=== PATIENT | female | born 1955 | race Caucasian/White ===

== ENCOUNTER 2020-08-01 19:00 | Inpatient (IN) ==
[~2020-08-01 19:00] MED LIST: HEPARIN/NACL 0.9% 2 UNITS/ML 1,000 ML IV ONE; HYDROmorphone 2 MG/1 ML VIAL ONE; LIDOCAINE 1% 20 ML VIAL ONE; MIDAZOLAM 2 MG/2 ML VIAL ONE; NITROGLYCERIN DRIP 50 MG/250 ML BOTTLE IV ONE; VERAPAMIL 5 MG/2 ML VIAL ONE
[2020-08-01] MEDS ORDERED: EPTIFIBATIDE 20,000 MCG/10 ML VIAL ONE (19:14)
[2020-08-01] MEDS ORDERED: EPTIFIBATIDE 75 MG/100 ML BOTTLE IV ONE (19:14)
[2020-08-01] MEDS ORDERED: TICAGRELOR 90 MG TABLET ONE (19:28)
[2020-08-01] MEDS ORDERED: DEXTROSE 50% 25 GM/50 ML VIAL IV PRN ×2 (19:33→21:00)
[2020-08-01] MEDS ORDERED: GLUCAGON 1 MG VIAL IM PRN ×2 (19:33→21:00)
[2020-08-01] MEDS: EPTIFIBATIDE 75 MG/100 ML BOTTLE IV SCH (19:52)
[2020-08-01] MEDS ORDERED: SODIUM CHLORIDE 0.9% 1,000 ML IV SCH (20:00)
[2020-08-01] MEDS: carvediloL 6.25 MG TABLET PO SCH (20:28)
[2020-08-01] MEDS: ROSUVASTATIN 20 MG TABLET PO SCH (20:28)
[2020-08-01] MEDS ORDERED: TICAGRELOR 90 MG TABLET PO SCH (21:00)
[2020-08-01] MEDS ORDERED: ACETAMINOPHEN 325 MG TABLET PO PRN (21:00)
[2020-08-01] MEDS ORDERED: ONDANSETRON 4 MG/2 ML VIAL IV PRN (21:00)
[2020-08-01 21:05] LABS: Basophils % 0.4 % (0.0-0.8); Eosinophils # 0.3 10*3/uL (0.0-0.87); Eosinophils % 2.8 % (0.00-10.9); Hematocrit 39.2 VOL% (35.7-47.0); Hemoglobin 12.5 GM/DL (12.0-16.0); Immature Granulocytes % 0.5 %; Immature Granulocytes Absolute 0.06 #; Lymphocytes # 2.4 10*3/uL (1.4-4.0); Lymphocytes % 21.2 % (21.3-54.2); Mean Corpuscular HGB Conc 31.9 GM/DL (32-36); Mean Corpuscular Volume 94.2 FL (87-102); Mean Platelet Volume 9.5 FL (9.6-12.0); Monocytes % 5.2 % (1.7-12.7); Neutrophils % 69.9 % (38.7-73.9); Platelet Count 278 T/CUMM (130-400); Red Blood Count 4.16 MC/CUMM (3.8-5.5); Red Cell Distribution Width 13.7 % (9.3-17.3); White Blood Count 11.3 T/CUMM (4-12)
[2020-08-01 21:19] LABS: Calcium 9.7 MG/DL (8.5-10.1); Osmolality,Calculated 286.4 MOS/KG (273-304)
[2020-08-01 21:23] LABS: CKMB % 7.5 %
[2020-08-01 21:25] LABS: Troponin I 17.3 NG/ML (0.00-0.045)
[2020-08-01] MEDS: INSULIN LISPRO 100 UNIT/ML SUBCUT SCH (21:43)
[2020-08-01] MEDS: ENOXAPARIN 40 MG/0.4 ML SYRINGE SUBCUT SCH (21:43)
[2020-08-01] MEDS: GABAPENTIN 300 MG CAPSULE PO SCH (22:55)
[2020-08-02] MEDS: EPTIFIBATIDE 75 MG/100 ML BOTTLE IV SCH (04:35)
[2020-08-02 06:33] LABS: Basophils # 0.1 10*3/uL (0.0-0.2); Basophils % 0.7 % (0.0-0.8); Eosinophils # 0.3 10*3/uL (0.0-0.87); Eosinophils % 3.7 % (0.00-10.9); Hemoglobin 11.4 GM/DL (12.0-16.0); Immature Granulocytes % 0.3 %; Immature Granulocytes Absolute 0.03 #; Lymphocytes % 22.2 % (21.3-54.2); Mean Corpuscular HGB Conc 32.6 GM/DL (32-36); Mean Corpuscular Volume 93.6 FL (87-102); Mean Platelet Volume 9.6 FL (9.6-12.0); Monocytes % 7.4 % (1.7-12.7); Neutrophils % 65.7 % (38.7-73.9); Platelet Count 244 T/CUMM (130-400); Red Blood Count 3.74 MC/CUMM (3.8-5.5); Red Cell Distribution Width 13.8 % (9.3-17.3); White Blood Count 9.2 T/CUMM (4-12)
[2020-08-02 06:54] LABS: Bacteria,Urine Occasional /HPF (Few); Mucus,Urine Occasional /LPF (Occasional); RBC,Urine 2 /HPF (0-4); Squamous Epithelial Cell,Urine Occasional /HPF (0-10); WBC,Urine 23 /HPF (0-6)
[2020-08-02 07:01] LABS: Urine Color Yellow (Yellow)
[2020-08-02 07:02] LABS: Apearance,Urine Clear (Clear); Bilirubin,Urine Negative (Negative); Blood, Urine Negative (Negative); Glucose,Urine (UA) Negative (Negative); Ketones,Urine Negative (Negative); Nitrite,Urine Negative (Negative); Protein,Urine 30 MG/DL; Urine Specific Gravity 1.015 (1.001-1.035)
[2020-08-02 07:04] LABS: Osmolality,Calculated 290.3 MOS/KG (273-304); Risk Ratio 5.07
[2020-08-02 07:05] LABS: Thyroid Stimulating Hormone 6.43 uIU/ml (0.358-3.74)
[2020-08-02 07:25] LABS: Troponin I 50.7 NG/ML (0.00-0.045)
[2020-08-02] MEDS: PANTOPRAZOLE 40 MG TABLET PO SCH (08:57)
[2020-08-02] MEDS: carvediloL 6.25 MG TABLET PO SCH ×2 (08:57→20:45)
[2020-08-02] MEDS: INSULIN LISPRO 100 UNIT/ML SUBCUT SCH ×4 (08:57→20:43)
[2020-08-02] MEDS: LOSARTAN 25 MG TABLET PO SCH (08:57)
[2020-08-02] MEDS: TICAGRELOR 90 MG TABLET PO SCH ×2 (08:57→20:44)
[2020-08-02] MEDS: ENOXAPARIN 40 MG/0.4 ML SYRINGE SUBCUT SCH (08:58)
[2020-08-02] MEDS ORDERED: GABAPENTIN 300 MG CAPSULE PO SCH (09:00)
[2020-08-02] MEDS ORDERED: ASPIRIN CHEW 81 MG TABLET PO SCH (09:00)
[2020-08-02] MEDS: rOPINIRole 0.25 MG TABLET PO SCH (10:07)
[2020-08-02] MEDS ORDERED: DEXTROSE 50% 25 GM/50 ML VIAL IV PRN (10:47)
[2020-08-02 11:54] LABS: CKMB % 6.6 %
[2020-08-02 11:58] LABS: Troponin I 28.5 NG/ML (0.00-0.045)
[2020-08-02 14:47] LABS: ABG Base Excess -0.7 MMOL/L (-2.5-2.5); ABG HCO3 23.8 MMOL/L (20-26); ABG Oxygen Saturation 96.7 % (95-100); ABG PCO2 35.3 MM HG (35-48); ABG PH 7.424 (7.35-7.45); ABG PO2 83.1 MM HG (80-95); ABG TCO2 20.4 MMOL/L (23-27); Allen Test Positive; Pt O2 Delivery Device Room Air
[2020-08-02] MEDS ORDERED: MAGNESIUM HYDROXIDE SUSP 30 ML UDCUP PO PRN (16:03)
[2020-08-02] MEDS ORDERED: diphenhydrAMINE CAP 25 MG CAPSULE PO PRN (16:03)
[2020-08-02] MEDS: GABAPENTIN 300 MG CAPSULE PO SCH (20:44)
[2020-08-02] MEDS: ROSUVASTATIN 20 MG TABLET PO SCH (20:48)
[2020-08-03 05:33] LABS: Basophils # 0.1 10*3/uL (0.0-0.2); Basophils % 0.7 % (0.0-0.8); Eosinophils # 0.4 10*3/uL (0.0-0.87); Eosinophils % 4.4 % (0.00-10.9); Hematocrit 35.5 VOL% (35.7-47.0); Hemoglobin 11.4 GM/DL (12.0-16.0); Immature Granulocytes % 0.5 %; Immature Granulocytes Absolute 0.05 #; Lymphocytes # 2.6 10*3/uL (1.4-4.0); Lymphocytes % 27.9 % (21.3-54.2); Mean Corpuscular HGB Conc 32.1 GM/DL (32-36); Mean Corpuscular Volume 94.2 FL (87-102); Mean Platelet Volume 9.8 FL (9.6-12.0); Monocytes % 6.9 % (1.7-12.7); Neutrophils % 59.6 % (38.7-73.9); Platelet Count 257 T/CUMM (130-400); Red Blood Count 3.77 MC/CUMM (3.8-5.5); White Blood Count 9.2 T/CUMM (4-12)
[2020-08-03 05:48] LABS: Calcium 9.2 MG/DL (8.5-10.1); Osmolality,Calculated 291.1 MOS/KG (273-304)
[2020-08-03 08:22] VITALS: BP 132/68
[2020-08-03] MEDS ORDERED: ASPIRIN EC 81 MG TABLET PO SCH (09:00)
[2020-08-03] MEDS: INSULIN LISPRO 100 UNIT/ML SUBCUT SCH (09:36)
[2020-08-03] MEDS: LOSARTAN 25 MG TABLET PO SCH (09:39)
[2020-08-03] MEDS: TICAGRELOR 90 MG TABLET PO SCH (09:39)
[2020-08-03] MEDS: rOPINIRole 0.25 MG TABLET PO SCH (09:39)
[2020-08-03] MEDS: carvediloL 6.25 MG TABLET PO SCH (09:39)
[2020-08-03] MEDS: ENOXAPARIN 40 MG/0.4 ML SYRINGE SUBCUT SCH (09:40)
[2020-08-03] MEDS: PANTOPRAZOLE 40 MG TABLET PO SCH (09:40)
[2020-08-03] MEDS ORDERED: metFORMIN 500 MG TABLET ONE (09:46)
[2020-08-04] MEDS ORDERED: metFORMIN 500 MG TABLET PO SCH (09:00)
== END 2020-08-03 11:40 | disposition home or self-care (01) | DRG 247 ==
LOC: N.CC 20:00 → INTOOBSV 20:00 → N.TELES 08-02 13:32
PROVIDERS: ADMIT Internal Medicine Cardiovascular Disease; ATTEND Internal Medicine Cardiovascular Disease

== ENCOUNTER 2022-07-05 15:40 | Inpatient (IN) ==
[2022-07-05] MEDS ORDERED: DOCUSATE SODIUM 100 MG CAPSULE PO PRN (19:14)
[2022-07-05] MEDS ORDERED: ONDANSETRON 4 MG/2 ML VIAL IV PRN (19:14)
[2022-07-05] MEDS ORDERED: DEXTROSE 50% 25 GM/50 ML VIAL IV PRN (19:14)
[2022-07-05] MEDS ORDERED: DEXTROSE 10% 250 ML BAG IV PRN (19:14)
[2022-07-05] MEDS ORDERED: GLUCAGON 1 MG VIAL IM PRN (19:14)
[2022-07-05 19:48] LABS: Basophils # 0.1 10*3/uL (0.0-0.2); Eosinophils # 0.1 10*3/uL (0.0-0.87); Eosinophils % 0.7 % (0.00-10.9); Hematocrit 46.5 VOL% (35.7-47.0); Hemoglobin 14.3 GM/DL (12.0-16.0); Immature Granulocytes % 0.6 %; Immature Granulocytes Absolute 0.06 #; Lymphocytes # 2.9 10*3/uL (1.4-4.0); Lymphocytes % 27.3 % (21.3-54.2); Mean Corpuscular HGB Conc 30.8 GM/DL (32-36); Mean Corpuscular Volume 96.7 FL (87-102); Mean Platelet Volume 9.8 FL (9.6-12.0); Monocytes # 0.7 10*3/uL (0.11-0.8); NRBC # 0.02 10*3/uL; Neutrophils % 63.4 % (38.7-73.9); Platelet Count 207 T/CUMM (130-400); Red Blood Count 4.81 MC/CUMM (3.8-5.5); Red Cell Distribution Width 16.6 % (9.3-17.3); White Blood Count 10.6 T/CUMM (4-12)
[2022-07-05 20:06] LABS: Albumin 2.3 G/DL (3.4-5.0); Bilirubin,Total 0.8 MG/DL (0.20-1.00); Calcium 9.8 MG/DL (8.5-10.1); Osmolality,Calculated 287.5 MOS/KG (273-304); Potassium 4.2 MMOL/L (3.5-5.1); Total Protein 6.5 G/DL (6.4-8.2)
[2022-07-05] MEDS: ROSUVASTATIN 20 MG TABLET PO SCH (22:47)
[2022-07-05] MEDS: GABAPENTIN 300 MG CAPSULE PO SCH (22:47)
[2022-07-05] MEDS: METOPROLOL TARTRATE 100 MG TABLET PO SCH (22:47)
[2022-07-05] MEDS: INSULIN REGULAR 100 UNIT/ML SUBCUT SCH (22:49)
[2022-07-05] MEDS: ENOXAPARIN 40 MG/0.4 ML SYRINGE SUBCUT SCH (22:53)
[2022-07-06 05:58] LABS: Basophils # 0.1 10*3/uL (0.0-0.2); Basophils % 0.9 % (0.0-0.8); Eosinophils # 0.2 10*3/uL (0.0-0.87); Eosinophils % 1.4 % (0.00-10.9); Hematocrit 46.2 VOL% (35.7-47.0); Hemoglobin 13.8 GM/DL (12.0-16.0); Immature Granulocytes % 0.4 %; Immature Granulocytes Absolute 0.05 #; Lymphocytes # 3.1 10*3/uL (1.4-4.0); Lymphocytes % 26.1 % (21.3-54.2); Mean Corpuscular HGB Conc 29.9 GM/DL (32-36); Mean Corpuscular Volume 99.4 FL (87-102); Mean Platelet Volume 10.5 FL (9.6-12.0); Monocytes # 0.8 10*3/uL (0.11-0.8); Monocytes % 6.8 % (1.7-12.7); NRBC # 0.04 10*3/uL; Neutrophils % 64.4 % (38.7-73.9); Platelet Count 212 T/CUMM (130-400); Red Blood Count 4.65 MC/CUMM (3.8-5.5); Red Cell Distribution Width 17.2 % (9.3-17.3); White Blood Count 11.8 T/CUMM (4-12)
[2022-07-06 06:30] LABS: Alanine Aminotransferase < 9 U/L (13-56); Albumin 2.5 G/DL (3.4-5.0); Alkaline Phosphatase 83 U/L (45-117); Aspartate Amino Transferase 22 U/L (0-37); Blood Urea Nitrogen 24 MG/DL (7-18); Calcium 9.8 MG/DL (8.5-10.1); Carbon Dioxide 15 MMOL/L (21-32); Chloride 113 MMOL/L (98-107); Cholesterol 107 MG/DL (50-200); Glucose 224 MG/DL (74-106); HDL Cholesterol 26 MG/DL (40-60); Osmolality,Calculated 287.5 MOS/KG (273-304); Potassium 4.9 MMOL/L (3.5-5.1); Risk Ratio 4.12; Sodium 139 MMOL/L (136-145); Total Protein 6.2 G/DL (6.4-8.2); Triglycerides 106 MG/DL (2-150); VLDL Cholesterol 21.2 MG/DL
[2022-07-06] MEDS: METOPROLOL TARTRATE 100 MG TABLET PO SCH (10:08)
[2022-07-06] MEDS: POTASSIUM CHLORIDE 20 MEQ TABLET PO SCH (10:11)
[2022-07-06] MEDS: DAPAGLIFLOZIN 10 MG TABLET PO SCH (10:12)
[2022-07-06] MEDS: INSULIN REGULAR 100 UNIT/ML SUBCUT SCH ×4 (10:12→22:40)
[2022-07-06] MEDS: ASPIRIN EC 325 MG TABLET PO SCH (10:12)
[2022-07-06] MEDS: FUROSEMIDE 40 MG/4 ML VIAL IV SCH ×2 (10:15→17:45)
[2022-07-06] MEDS ORDERED: MAGNESIUM SULF RIDER 2 GM/50 ML PREMIX IV PRN (15:43)
[2022-07-06] MEDS ORDERED: MAGNESIUM SULF RIDER 4 GM/100 ML PREMIX IV PRN (15:43)
[2022-07-06] MEDS: ROSUVASTATIN 20 MG TABLET PO SCH (21:05)
[2022-07-06] MEDS: GABAPENTIN 300 MG CAPSULE PO SCH (21:05)
[2022-07-06] MEDS: APIXABAN 5 MG TABLET PO SCH (21:05)
[2022-07-06] MEDS: ENOXAPARIN 40 MG/0.4 ML SYRINGE SUBCUT SCH (21:05)
[2022-07-07 06:15] LABS: Basophils # 0.1 10*3/uL (0.0-0.2); Basophils % 0.9 % (0.0-0.8); Eosinophils # 0.3 10*3/uL (0.0-0.87); Eosinophils % 1.8 % (0.00-10.9); Hematocrit 44.3 VOL% (35.7-47.0); Hemoglobin 13.7 GM/DL (12.0-16.0); Immature Granulocytes % 0.4 %; Immature Granulocytes Absolute 0.06 #; Lymphocytes # 4.6 10*3/uL (1.4-4.0); Lymphocytes % 32.6 % (21.3-54.2); Mean Corpuscular HGB Conc 30.9 GM/DL (32-36); Mean Corpuscular Volume 95.7 FL (87-102); Mean Platelet Volume 10.3 FL (9.6-12.0); Monocytes % 6.9 % (1.7-12.7); NRBC # 0.14 10*3/uL; Neutrophils % 57.4 % (38.7-73.9); Platelet Count 239 T/CUMM (130-400); Red Blood Count 4.63 MC/CUMM (3.8-5.5); Red Cell Distribution Width 17.2 % (9.3-17.3); White Blood Count 14.1 T/CUMM (4-12)
[2022-07-07 06:43] LABS: Calcium 9.6 MG/DL (8.5-10.1); Osmolality,Calculated 283.7 MOS/KG (273-304); Potassium 5.1 MMOL/L (3.5-5.1)
[2022-07-07] MEDS ORDERED: LOSARTAN 25 MG TABLET PO SCH (09:00)
[2022-07-07] MEDS: INSULIN REGULAR 100 UNIT/ML SUBCUT SCH ×4 (10:10→21:45)
[2022-07-07] MEDS: ASPIRIN EC 325 MG TABLET PO SCH (10:33)
[2022-07-07] MEDS: DAPAGLIFLOZIN 10 MG TABLET PO SCH (10:33)
[2022-07-07] MEDS: APIXABAN 5 MG TABLET PO SCH ×2 (10:33→21:45)
[2022-07-07] MEDS: POTASSIUM CHLORIDE 20 MEQ TABLET PO SCH (10:34)
[2022-07-07] MEDS: FUROSEMIDE 40 MG/4 ML VIAL IV SCH (10:34)
[2022-07-07] MEDS: FUROSEMIDE 20 MG/2 ML VIAL IV SCH (19:00)
[2022-07-07] MEDS: ROSUVASTATIN 20 MG TABLET PO SCH (21:45)
[2022-07-07] MEDS: GABAPENTIN 300 MG CAPSULE PO SCH (21:45)
[2022-07-08 07:44] LABS: Basophils # 0.2 10*3/uL (0.0-0.2); Basophils % 1.4 % (0.0-0.8); Eosinophils # 0.3 10*3/uL (0.0-0.87); Eosinophils % 2.9 % (0.00-10.9); Hematocrit 45.6 VOL% (35.7-47.0); Hemoglobin 14.1 GM/DL (12.0-16.0); Immature Granulocytes % 0.5 %; Immature Granulocytes Absolute 0.05 #; Lymphocytes # 3.5 10*3/uL (1.4-4.0); Lymphocytes % 31.5 % (21.3-54.2); Mean Corpuscular HGB Conc 30.9 GM/DL (32-36); Mean Corpuscular Volume 95.8 FL (87-102); Mean Platelet Volume 10.9 FL (9.6-12.0); Monocytes # 0.8 10*3/uL (0.11-0.8); Monocytes % 7.3 % (1.7-12.7); NRBC # 0.17 10*3/uL; Neutrophils % 56.4 % (38.7-73.9); Platelet Count 245 T/CUMM (130-400); Red Blood Count 4.76 MC/CUMM (3.8-5.5); Red Cell Distribution Width 17.6 % (9.3-17.3)
[2022-07-08 08:04] LABS: Osmolality,Calculated 281.1 MOS/KG (273-304); Potassium 4.8 MMOL/L (3.5-5.1)
[2022-07-08] MEDS ORDERED: FUROSEMIDE 40 MG TABLET PO ONE (09:21)
[2022-07-08] MEDS: FUROSEMIDE 20 MG/2 ML VIAL IV SCH ×2 (09:23→16:51)
[2022-07-08] MEDS: INSULIN REGULAR 100 UNIT/ML SUBCUT SCH ×4 (09:23→20:56)
[2022-07-08] MEDS: DAPAGLIFLOZIN 10 MG TABLET PO SCH (09:36)
[2022-07-08] MEDS: APIXABAN 5 MG TABLET PO SCH ×2 (09:36→20:55)
[2022-07-08] MEDS: ASPIRIN EC 325 MG TABLET PO SCH (09:36)
[2022-07-08] MEDS: POTASSIUM CHLORIDE 20 MEQ TABLET PO SCH (09:36)
[2022-07-08] MEDS: FUROSEMIDE 40 MG TABLET PO SCH (17:34)
[2022-07-08] MEDS: sitaGLIPtin 25 MG TABLET PO SCH (20:55)
[2022-07-08] MEDS: GABAPENTIN 300 MG CAPSULE PO SCH (20:55)
[2022-07-08] MEDS: METOPROLOL TARTRATE 25 MG TABLET PO SCH (20:59)
[2022-07-08] MEDS: ROSUVASTATIN 20 MG TABLET PO SCH (21:01)
[2022-07-09] MEDS: INSULIN REGULAR 100 UNIT/ML SUBCUT SCH ×4 (08:58→20:48)
[2022-07-09] MEDS: APIXABAN 5 MG TABLET PO SCH ×2 (09:10→20:47)
[2022-07-09] MEDS: FUROSEMIDE 40 MG TABLET PO SCH ×2 (09:10→17:09)
[2022-07-09] MEDS: ASPIRIN EC 325 MG TABLET PO SCH (09:10)
[2022-07-09] MEDS: DAPAGLIFLOZIN 10 MG TABLET PO SCH (09:10)
[2022-07-09] MEDS: POTASSIUM CHLORIDE 20 MEQ TABLET PO SCH (09:10)
[2022-07-09] MEDS: METOPROLOL TARTRATE 25 MG TABLET PO SCH ×2 (09:11→20:02)
[2022-07-09 09:24] LABS: Calcium 10.1 MG/DL (8.5-10.1); Potassium 4.7 MMOL/L (3.5-5.1)
[2022-07-09 09:39] LABS: Basophils # 0.2 10*3/uL (0.0-0.2); Basophils % 1.4 % (0.0-0.8); Eosinophils # 0.3 10*3/uL (0.0-0.87); Eosinophils % 2.6 % (0.00-10.9); Hemoglobin 13.6 GM/DL (12.0-16.0); Immature Granulocytes % 0.6 %; Immature Granulocytes Absolute 0.07 #; Lymphocytes # 2.6 10*3/uL (1.4-4.0); Lymphocytes % 22.8 % (21.3-54.2); Mean Corpuscular HGB Conc 31.6 GM/DL (32-36); Mean Corpuscular Volume 95.1 FL (87-102); Mean Platelet Volume 10.4 FL (9.6-12.0); Monocytes # 0.9 10*3/uL (0.11-0.8); NRBC # 0.21 10*3/uL; Neutrophils % 64.6 % (38.7-73.9); Platelet Count 273 T/CUMM (130-400); Red Blood Count 4.52 MC/CUMM (3.8-5.5); Red Cell Distribution Width 18.6 % (9.3-17.3); White Blood Count 11.5 T/CUMM (4-12)
[2022-07-09] MEDS: ROSUVASTATIN 20 MG TABLET PO SCH (20:47)
[2022-07-09] MEDS: GABAPENTIN 300 MG CAPSULE PO SCH (20:47)
[2022-07-09] MEDS: sitaGLIPtin 25 MG TABLET PO SCH (20:47)
[2022-07-10 05:41] LABS: Basophils # 0.1 10*3/uL (0.0-0.2); Eosinophils # 0.4 10*3/uL (0.0-0.87); Eosinophils % 3.6 % (0.00-10.9); Hematocrit 43.3 VOL% (35.7-47.0); Hemoglobin 13.5 GM/DL (12.0-16.0); Immature Granulocytes % 0.7 %; Immature Granulocytes Absolute 0.07 #; Lymphocytes # 2.7 10*3/uL (1.4-4.0); Lymphocytes % 27.9 % (21.3-54.2); Mean Corpuscular HGB Conc 31.2 GM/DL (32-36); Mean Corpuscular Volume 96.2 FL (87-102); Mean Platelet Volume 10.4 FL (9.6-12.0); Monocytes # 0.8 10*3/uL (0.11-0.8); Monocytes % 8.3 % (1.7-12.7); NRBC # 0.12 10*3/uL; Neutrophils % 58.5 % (38.7-73.9); Platelet Count 240 T/CUMM (130-400); Red Cell Distribution Width 18.9 % (9.3-17.3); White Blood Count 9.7 T/CUMM (4-12)
[2022-07-10 06:01] LABS: Calcium 9.4 MG/DL (8.5-10.1); Osmolality,Calculated 295.3 MOS/KG (273-304)
[2022-07-10] MEDS: DAPAGLIFLOZIN 10 MG TABLET PO SCH (08:48)
[2022-07-10] MEDS: APIXABAN 5 MG TABLET PO SCH ×2 (08:48→20:25)
[2022-07-10] MEDS: METOPROLOL TARTRATE 25 MG TABLET PO SCH ×2 (08:49→20:28)
[2022-07-10] MEDS: ASPIRIN EC 325 MG TABLET PO SCH (08:49)
[2022-07-10] MEDS: INSULIN REGULAR 100 UNIT/ML SUBCUT SCH ×4 (08:49→20:25)
[2022-07-10] MEDS: POTASSIUM CHLORIDE 20 MEQ TABLET PO SCH (08:49)
[2022-07-10] MEDS: FUROSEMIDE 40 MG TABLET PO SCH ×2 (08:49→17:46)
[2022-07-10] MEDS: sitaGLIPtin 25 MG TABLET PO SCH (20:25)
[2022-07-10] MEDS: GABAPENTIN 300 MG CAPSULE PO SCH (20:25)
[2022-07-10] MEDS: ROSUVASTATIN 20 MG TABLET PO SCH (20:27)
[2022-07-11 05:32] LABS: Basophils # 0.1 10*3/uL (0.0-0.2); Eosinophils # 0.5 10*3/uL (0.0-0.87); Eosinophils % 4.9 % (0.00-10.9); Hematocrit 45.2 VOL% (35.7-47.0); Hemoglobin 13.9 GM/DL (12.0-16.0); Immature Granulocytes % 0.4 %; Immature Granulocytes Absolute 0.04 #; Lymphocytes % 33.1 % (21.3-54.2); Mean Corpuscular HGB Conc 30.8 GM/DL (32-36); Mean Corpuscular Volume 97.4 FL (87-102); Mean Platelet Volume 10.4 FL (9.6-12.0); Monocytes # 0.7 10*3/uL (0.11-0.8); Monocytes % 7.3 % (1.7-12.7); NRBC # 0.03 10*3/uL; Neutrophils % 53.3 % (38.7-73.9); Platelet Count 249 T/CUMM (130-400); Red Blood Count 4.64 MC/CUMM (3.8-5.5); Red Cell Distribution Width 19.3 % (9.3-17.3); White Blood Count 9.2 T/CUMM (4-12)
[2022-07-11 05:47] LABS: Calcium 9.8 MG/DL (8.5-10.1); Osmolality,Calculated 297.1 MOS/KG (273-304); Potassium 3.8 MMOL/L (3.5-5.1)
[2022-07-11] MEDS: APIXABAN 5 MG TABLET PO SCH ×2 (08:11→22:09)
[2022-07-11] MEDS: POTASSIUM CHLORIDE 20 MEQ TABLET PO SCH (08:11)
[2022-07-11] MEDS: ASPIRIN EC 325 MG TABLET PO SCH (08:11)
[2022-07-11] MEDS: DAPAGLIFLOZIN 10 MG TABLET PO SCH (08:12)
[2022-07-11] MEDS: INSULIN REGULAR 100 UNIT/ML SUBCUT SCH ×4 (08:12→22:10)
[2022-07-11] MEDS: FUROSEMIDE 40 MG TABLET PO SCH ×2 (08:14→17:35)
[2022-07-11] MEDS: METOPROLOL TARTRATE 25 MG TABLET PO SCH ×2 (11:27→22:10)
[2022-07-11] MEDS: sitaGLIPtin 25 MG TABLET PO SCH (22:09)
[2022-07-11] MEDS: GABAPENTIN 300 MG CAPSULE PO SCH (22:09)
[2022-07-11] MEDS: ROSUVASTATIN 20 MG TABLET PO SCH (22:13)
[2022-07-11] MEDS: ACETAMINOPHEN 325 MG TABLET PO PRN (22:14)
[2022-07-12 06:11] LABS: Calcium 9.7 MG/DL (8.5-10.1); Potassium 3.4 MMOL/L (3.5-5.1)
[2022-07-12 06:15] LABS: Basophils # 0.1 10*3/uL (0.0-0.2); Basophils % 1.2 % (0.0-0.8); Eosinophils # 0.5 10*3/uL (0.0-0.87); Eosinophils % 5.7 % (0.00-10.9); Hematocrit 45.7 VOL% (35.7-47.0); Hemoglobin 14.1 GM/DL (12.0-16.0); Immature Granulocytes % 0.2 %; Immature Granulocytes Absolute 0.02 #; Lymphocytes # 3.3 10*3/uL (1.4-4.0); Lymphocytes % 38.5 % (21.3-54.2); Mean Corpuscular HGB Conc 30.9 GM/DL (32-36); Mean Corpuscular Volume 96.8 FL (87-102); Mean Platelet Volume 11.1 FL (9.6-12.0); Monocytes % 11.6 % (1.7-12.7); Neutrophils % 42.8 % (38.7-73.9); Platelet Count 164 T/CUMM (130-400); Red Blood Count 4.72 MC/CUMM (3.8-5.5); Red Cell Distribution Width 18.9 % (9.3-17.3); White Blood Count 8.6 T/CUMM (4-12)
[2022-07-12] MEDS: INSULIN REGULAR 100 UNIT/ML SUBCUT SCH ×4 (08:53→21:56)
[2022-07-12] MEDS: DAPAGLIFLOZIN 10 MG TABLET PO SCH (09:05)
[2022-07-12] MEDS: POTASSIUM CHLORIDE 20 MEQ TABLET PO SCH ×2 (09:05→21:55)
[2022-07-12] MEDS: ASPIRIN EC 325 MG TABLET PO SCH (09:06)
[2022-07-12] MEDS: METOPROLOL TARTRATE 25 MG TABLET PO SCH ×2 (09:06→21:56)
[2022-07-12] MEDS: APIXABAN 5 MG TABLET PO SCH ×2 (09:06→21:56)
[2022-07-12] MEDS: FUROSEMIDE 40 MG TABLET PO SCH ×2 (09:06→16:53)
[2022-07-12] MEDS ORDERED: TUBERCULIN SKIN TEST 0.1 ML SYRINGE INTRADERM ONE (13:13)
[2022-07-12] MEDS: GABAPENTIN 300 MG CAPSULE PO SCH (21:56)
[2022-07-12] MEDS: ROSUVASTATIN 20 MG TABLET PO SCH (21:56)
[2022-07-13] MEDS: ACETAMINOPHEN 325 MG TABLET PO PRN ×2 (01:38→13:19)
[2022-07-13 05:40] LABS: Basophils # 0.1 10*3/uL (0.0-0.2); Basophils % 1.1 % (0.0-0.8); Eosinophils # 0.4 10*3/uL (0.0-0.87); Eosinophils % 6.2 % (0.00-10.9); Hematocrit 42.4 VOL% (35.7-47.0); Hemoglobin 13.3 GM/DL (12.0-16.0); Immature Granulocytes % 0.4 %; Immature Granulocytes Absolute 0.03 #; Lymphocytes # 2.9 10*3/uL (1.4-4.0); Lymphocytes % 40.3 % (21.3-54.2); Mean Corpuscular HGB Conc 31.4 GM/DL (32-36); Mean Corpuscular Volume 96.4 FL (87-102); Mean Platelet Volume 10.6 FL (9.6-12.0); Monocytes # 0.7 10*3/uL (0.11-0.8); Monocytes % 9.4 % (1.7-12.7); Neutrophils % 42.6 % (38.7-73.9); Platelet Count 208 T/CUMM (130-400); Red Cell Distribution Width 18.6 % (9.3-17.3); White Blood Count 7.1 T/CUMM (4-12)
[2022-07-13 06:04] LABS: Calcium 9.7 MG/DL (8.5-10.1); Osmolality,Calculated 289.4 MOS/KG (273-304); Potassium 3.6 MMOL/L (3.5-5.1)
[2022-07-13] MEDS: INSULIN REGULAR 100 UNIT/ML SUBCUT SCH ×4 (08:12→21:03)
[2022-07-13] MEDS: APIXABAN 5 MG TABLET PO SCH ×2 (09:10→21:02)
[2022-07-13] MEDS: DAPAGLIFLOZIN 10 MG TABLET PO SCH (09:10)
[2022-07-13] MEDS: ASPIRIN EC 325 MG TABLET PO SCH (09:10)
[2022-07-13] MEDS: METOPROLOL TARTRATE 25 MG TABLET PO SCH ×2 (09:10→21:03)
[2022-07-13] MEDS: FUROSEMIDE 40 MG TABLET PO SCH ×2 (09:10→15:28)
[2022-07-13] MEDS: POTASSIUM CHLORIDE 20 MEQ TABLET PO SCH ×2 (09:10→21:02)
[2022-07-13] MEDS: ROSUVASTATIN 20 MG TABLET PO SCH (21:03)
[2022-07-13] MEDS: GABAPENTIN 300 MG CAPSULE PO SCH (21:03)
[2022-07-14] MEDS: ACETAMINOPHEN 325 MG TABLET PO PRN ×2 (03:48→09:41)
[2022-07-14 06:07] LABS: Calcium 9.2 MG/DL (8.5-10.1); Potassium 3.6 MMOL/L (3.5-5.1)
[2022-07-14 06:48] LABS: Basophils # 0.1 10*3/uL (0.0-0.2); Basophils % 0.7 % (0.0-0.8); Eosinophils # 0.6 10*3/uL (0.0-0.87); Hematocrit 44.8 VOL% (35.7-47.0); Immature Granulocytes % 0.3 %; Immature Granulocytes Absolute 0.03 #; Lymphocytes # 3.7 10*3/uL (1.4-4.0); Lymphocytes % 42.8 % (21.3-54.2); Mean Corpuscular HGB Conc 31.3 GM/DL (32-36); Mean Corpuscular Volume 95.7 FL (87-102); Mean Platelet Volume 10.8 FL (9.6-12.0); Monocytes # 0.9 10*3/uL (0.11-0.8); Monocytes % 9.8 % (1.7-12.7); Neutrophils % 39.4 % (38.7-73.9); Platelet Count 175 T/CUMM (130-400); Red Blood Count 4.68 MC/CUMM (3.8-5.5); Red Cell Distribution Width 18.7 % (9.3-17.3); White Blood Count 8.7 T/CUMM (4-12)
[2022-07-14] MEDS: INSULIN REGULAR 100 UNIT/ML SUBCUT SCH ×5 (09:30→21:31)
[2022-07-14] MEDS: METOPROLOL TARTRATE 25 MG TABLET PO SCH ×2 (09:30→21:30)
[2022-07-14] MEDS: POTASSIUM CHLORIDE 20 MEQ TABLET PO SCH ×2 (09:36→21:30)
[2022-07-14] MEDS: DAPAGLIFLOZIN 10 MG TABLET PO SCH (09:36)
[2022-07-14] MEDS: ASPIRIN EC 325 MG TABLET PO SCH (09:36)
[2022-07-14] MEDS: FUROSEMIDE 40 MG TABLET PO SCH ×2 (09:37→16:46)
[2022-07-14] MEDS: APIXABAN 5 MG TABLET PO SCH ×2 (09:37→21:30)
[2022-07-14] MEDS ORDERED: DULoxetine 30 MG CAPSULE PO SCH (21:00)
[2022-07-14] MEDS: GABAPENTIN 300 MG CAPSULE PO SCH (21:30)
[2022-07-14] MEDS: ROSUVASTATIN 20 MG TABLET PO SCH (21:30)
[2022-07-15] MEDS: INSULIN REGULAR 100 UNIT/ML SUBCUT SCH ×2 (08:51→12:14)
[2022-07-15] MEDS: DAPAGLIFLOZIN 10 MG TABLET PO SCH (09:15)
[2022-07-15] MEDS: ASPIRIN EC 325 MG TABLET PO SCH (09:15)
[2022-07-15] MEDS: POTASSIUM CHLORIDE 20 MEQ TABLET PO SCH (09:15)
[2022-07-15] MEDS: FUROSEMIDE 40 MG TABLET PO SCH (09:16)
[2022-07-15] MEDS: APIXABAN 5 MG TABLET PO SCH (09:16)
[2022-07-15] MEDS: METOPROLOL TARTRATE 25 MG TABLET PO SCH (09:16)
[2022-07-15 12:24] VITALS: BP 136/68
== END 2022-07-15 15:02 | DRG 175 ==
LOC: N.TELEN 17:13 → SUATTDRO 17:13 → INTOOBSV 17:13
PROVIDERS: ADMIT Internal Medicine; ATTEND Hospitalist